=== PATIENT | female | born 1965 | race American Indian/Alaskan Native ===

== ENCOUNTER 2021-05-14 08:25 | Observation (INO) | payer OTHER ==
[2021-05-14] MEDS ORDERED: ASPIRIN 325 MG TAB PO ONE (08:51)
--- NOTE | 2021-05-14 09:25 | XRay Report ---
CHEST 2 VIEWS INDICATION / CLINICAL INFORMATION: Chest pain. COMPARISON: None available. FINDINGS: SUPPORT DEVICES: None. HEART / MEDIASTINUM: No significant abnormality. LUNGS / PLEURA: No significant pulmonary or pleural abnormality. No pneumothorax. ADDITIONAL FINDINGS: No significant additional findings. IMPRESSION: 1. No acute findings. Signer Name: David García MD Signed: 05/14/2021 9:21 AM Workstation Name: [id number]
[2021-05-14 10:38] LABS: Basophils % (Auto) 0.5 % (0.0-1.8); Eosinophils # (Auto) 0.2 K/mm3 (0.0-0.4); Hematocrit 39.2 % (30.3-42.9); Hemoglobin 12.9 gm/dl (10.1-14.3); Lymphocytes % (Auto) 29.5 % (13.4-35.0); Mean Corpuscular HGB Conc 33 % (30-34); Mean Corpuscular Volume 84 fl (79-97); Monocytes # (Auto) 0.5 K/mm3 (0.0-0.8); Monocytes % (Auto) 6.7 % (0.0-7.3); Platelet Count 197 K/mm3 (140-440); Red Blood Count 4.65 M/mm3 (3.65-5.03); Red Cell Distribution Width 14.3 % (13.2-15.2)
[2021-05-14] MEDS ORDERED: NITROGLYCERIN 2% OINT 1 GM TP ONE (10:56)
--- NOTE | 2021-05-14 11:00 | Emergency Department Report ---
HPI - General Chief Complaint: Chest Pain Time Seen by Provider: 05/14/21 10:17 - HPI HPI: Room 36 The patient is a 55-year-old female present with chief complaint of chest pain. The patient states for the past 4 days she has had intermittent substernal chest pain described as feeling as though the elephant is sitting on her chest associated with shortness of breath, diaphoresis and nausea without vomiting. The patient has a history of factor V Leiden and states the only "blood thinner" she takes for this visit aspirin. Patient denies pleurisy but admits to occasional cough productive mucus with pink sputum. The patient states this morning when she awakened she had numbness in her right upper extremity prompting her to come to the emergency department. 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 Factor V Leiden - Surgical History Additional Surgical History: hysterectomy, Right knee surgery. Right carpal tunnel repair - Family History Family history: no significant - Social History Smoking Status: Never Smoker Substance Use Type: None (Denies illicit drug use), Alcohol (Occasional) - Medications Home Medications: Home Medications Medication Instructions Recorded Confirmed Last Taken Type Aspirin [Aspirin BABY CHEW TAB] 81 mg PO QDAY 01/12/16 01/12/16 1 Day Ago History ~01/11/16 HYDROcodone/APAP 5-325 [[place] 1 - 2 each PO Q6HR PRN #12 tablet 01/12/16 Unknown Rx 5/325] Lactulose [Cephulac] 20 gm PO QDAY PRN #90 ml 01/12/16 Unknown Rx Promethazine [Phenergan TAB] 25 mg PO Q6HR PRN #20 tab 01/12/16 Unknown Rx Promethazine [Phenergan] 25 mg MT Q6HR PRN #10 supp.rect 01/12/16 Unknown Rx raNITIdine HCl [Zantac 150 MG TAB] 150 mg PO BID 01/12/16 01/12/16 1 Day Ago History ~01/11/16 metroNIDAZOLE [Metronidazole] 500 mg PO TID #21 tablet 09/14/18 Unknown Rx ED Review of Systems ROS: Stated complaint: CHEST PAIN Other details as noted in HPI Constitutional: diaphoresis Eyes: denies: eye pain ENT: denies: throat pain Respiratory: shortness of breath Cardiovascular: chest pain Endocrine: no symptoms reported Gastrointestinal: nausea. denies: vomiting Genitourinary: denies: dysuria Musculoskeletal: back pain Neurological: headache, paresthesias Physical Exam - Physical Exam Vital Signs: Vital Signs 05/14/21 08:48 Temperature 98.2 F Pulse Rate 75 Respiratory 18 Rate Blood Pressure 150/98 [Right] O2 Sat by Pulse 99 Oximetry Physical Exam: GENERAL: The patient is well-developed well-nourished female lying on stretcher not appearing to be in acute distress. [] HEENT: Normocephalic. Atraumatic. Extraocular motions are intact. Patient has moist mucous membranes. NECK: Supple. Trachea midline CHEST/LUNGS: Clear to auscultation. There is no respiratory distress noted. HEART/CARDIOVASCULAR: Regular. There is no tachycardia. There is no gallop rub or murmur. ABDOMEN: Abdomen is soft, nontender. Patient has normal bowel sounds. There is no abdominal distention. SKIN: There is no rash. There is no edema. There is no diaphoresis. NEURO: The patient is awake, alert, and oriented. The patient is cooperative. The patient has no focal neurologic deficits. The patient has normal speech MUSCULOSKELETAL: There is no evidence of acute injury. ED Course Vital Signs 05/14/21 08:48 Temperature 98.2 F Pulse Rate 75 Respiratory 18 Rate Blood Pressure 150/98 [Right] O2 Sat by Pulse 99 Oximetry ED Medical Decision Making - Lab Data Result diagrams: 05/14/21 10:17 05/14/21 10:17 Laboratory Tests 05/14/21 05/14/21 10:17 10:17 WBC 6.9 RBC 4.65 Hgb 12.9 Hct 39.2 MCV 84 MCH 28 MCHC 33 RDW 14.3 Plt Count 197 Lymph % (Auto) 29.5 Bacon % (Auto) 6.7 Eos % (Auto) 3.0 Baso % (Auto) 0.5 Lymph # (Auto) 2.0 Bacon # (Auto) 0.5 Eos # (Auto) 0.2 Baso # (Auto) 0.0 Seg Neutrophils % 60.3 Seg Neutrophils # 4.2 Sodium 142 Potassium 4.2 Chloride 106.1 Carbon Dioxide 27 Anion Gap 13 BUN 11 Creatinine 0.6 Estimated GFR > 60 BUN/Creatinine Ratio 18 Glucose 91 Calcium 9.2 Total Bilirubin 0.40 AST 12 ALT 10 Alkaline Phosphatase 69 Troponin T < 0.010 Total Protein 7.0 Albumin 4.1 Albumin/Globulin Ratio 1.4 - EKG Data -: EKG Interpreted by Me EKG shows normal: sinus rhythm Rate: normal - EKG Data When compared to previous EKG there are: previous EKG unavailable Interpretation: nonspecific ST-T wave selina (T wave inversion in lead III) - Radiology Data Radiology results: report reviewed (Chest x-ray, CT chest), image reviewed (Chest x-ray, CT chest) interpreted by me: Chest x-ray-no focal infiltrates, no pneumothorax. No foreign body seen [address] [address] XRay Report Signed Patient: GEOVANY GONZALES R#: [id number] : 1965 Acct:[id number] Age/Sex: 55 / F ADM Date: 05/14/21 Loc: ED Attending Dr: Ordering Physician: ED MD TREVER Date of Service: 05/14/21 Procedure(s): XR chest routine 2V Accession Number(s): [id number] cc: ED MD TREVER Fluoro Time In Minutes: CHEST 2 VIEWS INDICATION / CLINICAL INFORMATION: Chest pain. COMPARISON: None available. FINDINGS: SUPPORT DEVICES: None. HEART / MEDIASTINUM: No significant abnormality. LUNGS / PLEURA: No significant pulmonary or pleural abnormality. No pneumothorax. ADDITIONAL FINDINGS: No significant additional findings. IMPRESSION: 1. No acute findings. Signer Name: David García MD Signed: 05/14/2021 9:21 AM Workstation Name: [id number] Transcribed By: LEANA Dictated By: David García MD Electronically Authenticated By: David García MD Signed Date/Time: 05/14/21920 DD/ 9 TD/TT: Print [address] [address] Cat Scan Report Signed Patient: GEOVANY GONZALES R#: [id number] : 1965 Acct:[id number] Age/Sex: 55 / F ADM Date: 05/14/21 Loc: ED Attending Dr: Ordering Physician: JOSE FU MD Date of Service: 05/14/21 Procedure(s): CT angio chest Accession Number(s): [id number] cc: JOSE FU MD CTA CHEST WITH CONTRAST INDICATION : 100ml of Omnipaque 350 given, SOB, chest pain, and right side weakness. TECHNIQUE: Axial imaging performed through the chest, with contrast bolus timing set to maximize opacification of the pulmonary arteries. Sagittal and coronal reformatted images. 3-plane MIP reformatted images were obtained. All CT scans at this location are performed using CT dose reduction for ALARA by means of automated exposure control. 100 mL of intraven ous contrast administered. COMPARISON: None FINDINGS: Bolus: Contrast bolus timing is adequate. PTE: No filling defect is present to suggest PTE. Mediastinum: Heart and great vessels appear normal. No pathologic mediastinal adenopathy. Lungs: Lungs are clear. Bones: Degenerative changes in the spine with nothing acute. Upper abdomen: Limited imaging of the upper abdomen shows nothing acute. IMPRESSION: Negative for PTE. Clear lungs. Signer Name: Dav York Jr, MD Signed: 05/14/2021 12:01 PM Workstation Name: [id number] Transcribed By: TTR Dictated By: DAV YORK JR, MD Electronically Authenticated By: DAV YORK JR, MD Signed Date/Time: 05/14/21 1201 DD/ 1200 TD/TT: Print Cancel - Differential Diagnosis ACS, pericarditis, PE, GERD Critical care attestation.: If time is entered above; I have spent that time in minutes in the direct care of this critically ill patient, excluding procedure time. ED Disposition Clinical Impression: Chest pain Disposition: OP ADMIT IP TO THIS HOSP Is pt being admited?: Yes Does the pt Need Aspirin: Yes Condition: Fair Instructions: Nonspecific Chest Pain, Adult Referrals: PRIMARY CARE,MD [Primary Care Provider] - 3-5 Days Time of Disposition: 12:08 (Hospitalist paged (Dr. Cohen)) Heart Score - HEART Score History: Highly suspicious EKG: Non-specific Age: 45-65 Risk factors: 1-2 risk factors Troponin: < normal limit HEART Score: 5 - EKG Read Time Time EKG Completed: 09:04 EKG Read Time: 09:06
[2021-05-14 11:08] LABS: Alanine Aminotransferase 10 units/L (7-56); Albumin 4.1 g/dL (3.9-5); Blood Urea Nitrogen 11 mg/dL (7-17); Calcium 9.2 mg/dL (8.4-10.2); Hemolysis Index 2
[2021-05-14 11:10] LABS: BUN/Creatinine Ratio 18
--- NOTE | 2021-05-14 12:06 | Cat Scan Report ---
CTA CHEST WITH CONTRAST INDICATION : 100ml of Omnipaque 350 given, SOB, chest pain, and right side weakness. TECHNIQUE: Axial imaging performed through the chest, with contrast bolus timing set to maximize opa cification of the pulmonary arteries. Sagittal and coronal reformatted images. 3-plane MIP reformatte d images were obtained. All CT scans at this location are performed using CT dose reduction for ALAR A by means of automated exposure control. 100 mL of intravenous contrast administered. COMPARISON: None FINDINGS: Bolus: Contrast bolus timing is adequate. PTE: No filling defect is present to suggest PTE. Mediastinum: Heart and great vessels appear normal. No pathologic mediastinal adenopathy. Lungs: Lungs are clear. Bones: Degenerative changes in the spine with nothing acute. Upper abdomen: Limited imaging of the upper abdomen shows nothing acute. IMPRESSION: Negative for PTE. Clear lungs. Signer Name: Dav York Jr, MD Signed: 05/14/2021 12:01 PM Workstation Name: [id number]
--- NOTE | 2021-05-14 13:06 | History and Physical Report ---
History of Present Illness Chief complaint: My chest hurts History of present illness: 55 YO Female with Obesity, HTN, CVA, Factor V Leiden Mutation on Antiplatelet therapy with Asprin, GERD presents to ED for evaluation. Patient reports "my chest hurts". Patient states that she has experienced pain in her chest over the past 4 days with persistent symptoms over the same timeframe. Patient states that pain is 4/10, intermittent, substernal, crushing in nature, nonradiating, associated with shortness of breath, associated with diaphoresis, and "feels as though an elephant is sitting on her chest". Patient transported to [facility] via private vehicle for further care and evaluation of the aforementioned symptoms. The patient was seen and evaluated in the emergency department. All lab and imaging studies reviewed. Patient found to have symptoms consistent with angina, as well as atypical chest pain possibly secondary to gastroesophageal reflux disease. Patient placed in observation status and admitted to telemetry floor and initiated on chest pain protocol. Patient treated with concomitant PPI therapy. Patient denies fever, chills, palpitation, productive cough, skin rash, recent ill contact, or known exposure to COVID-19. No prior admission for review. All medication listed at time of admission has been reconciled. Past History Past Medical History: GERD, hypertension, other (See HPI) Past Surgical History: hysterectomy, Other (Right knee surgery, right carpal tunnel release.) Social history: single. denies: smoking, alcohol abuse, prescription drug abuse Family history: diabetes, hypertension Medications and Allergies Allergies Allergy/AdvReac Type Severity Reaction Status Date / Time No Known Allergies Allergy Unverified 01/12/16 14:43 Home Medications Medication Instructions Recorded Confirmed Last Taken Type Aspirin [Aspirin BABY CHEW TAB] 81 mg PO QDAY 01/12/16 01/12/16 1 Day Ago History ~01/11/16 HYDROcodone/APAP 5-325 [[place] 1 - 2 each PO Q6HR PRN #12 tablet 01/12/16 Unknown Rx 5/325] Lactulose [Cephulac] 20 gm PO QDAY PRN #90 ml 01/12/16 Unknown Rx Promethazine [Phenergan TAB] 25 mg PO Q6HR PRN #20 tab 01/12/16 Unknown Rx Promethazine [Phenergan] 25 mg CO Q6HR PRN #10 supp.rect 01/12/16 Unknown Rx raNITIdine HCl [Zantac 150 MG TAB] 150 mg PO BID 01/12/16 01/12/16 1 Day Ago History ~01/11/16 metroNIDAZOLE [Metronidazole] 500 mg PO TID #21 tablet 09/14/18 Unknown Rx Review of Systems Constitutional: no weight loss, no weight gain, no fever, no chills, no weakness, no malaise Ears, nose, mouth and throat: no ear pain, no ear discharge, no tinnitis, no decreased hearing, no nasal congestion Breasts: no change in shape, no swelling, no mass Cardiovascular: chest pain, no orthopnea, no palpitations, no rapid/irregular heart beat, no edema, no shortness of breath, no dyspnea on exertion, no claudication Respiratory: no cough, no excessive sputum, no shortness of breath Gastrointestinal: no abdominal pain, no nausea, no vomiting, no diarrhea, no constipation Genitourinary Female: no pelvic pain, no flank pain, no dysuria, no urinary frequency, no urgency Rectal: no pain, no incontinence, no bleeding Musculoskeletal: no neck stiffness, no neck pain, no shooting arm pain, no arm numbness/tingling, no shooting leg pain Integumentary: no rash, no pruritis, no redness, no sores, no wounds Neurological: no head injury, no transient paralysis, no paralysis, no weakness, no parathesias, no seizures, no syncope Psychiatric: no anxiety, no memory loss, no sleep disturbances, no hypersomnia, no change in appetite, no change in libido Endocrine: no cold intolerance, no heat intolerance, no excessive thirst, no polydipsia, no polyuria, no nocturia Hematologic/Lymphatic: no easy bruising, no easy bleeding, no lymphedema Allergic/Immunologic: no urticaria, no persistent infections Exam - Constitutional Vitals: Temp Pulse Resp BP Pulse Ox 98.2 F 62 18 143/81 99 05/14/21 08:48 05/14/21 12:17 05/14/21 08:48 05/14/21 12:17 05/14/21 08:48 General appearance: Present: mild distress - EENT Eyes: Present: PERRL ENT: hearing intact, clear oral mucosa - Neck Neck: Present: supple, normal ROM - Respiratory Respiratory effort: normal Respiratory: bilateral: CTA - Cardiovascular Heart Sounds: Present: S1 & S2. Absent: rub, click - Extremities Extremities: pulses symmetrical, No edema Peripheral Pulses: within normal limits - Abdominal General gastrointestinal: Present: soft, non-tender, non-distended, normal bowel sounds Female genitourinary: Present: normal - Integumentary Integumentary: Present: clear, warm, dry - Musculoskeletal Musculoskeletal: gait normal, strength equal bilaterally - Psychiatric Psychiatric: appropriate mood/affect, intact judgment & insight - Neurologic Neurologic: CNII-XII intact, moves all extremities HEART Score - HEART Score EKG: Non-specific Age: 45-65 Risk factors: 1-2 risk factors Troponin: Troponin T < 0.010 ng/mL (0.00-0.029) 05/14/21 11:56 Troponin: < normal limit Results - Labs CBC & Chem 7: 05/14/21 10:17 05/14/21 10:17 Assessment and Plan - Patient Problems (1) Chest pain Current Visit: Yes Status: Acute Qualifiers: Chest pain type: unspecified Qualified Code(s): R07.9 - Chest pain, unspecified Plan to address problem: Chest pain protocol,: Serial cardiac enzymes, EKG, remote telemetry monitoring. EKG reviewed normal sinus rhythm, no evidence of ischemia. (2) GERD (gastroesophageal reflux disease) Current Visit: Yes Status: Acute Plan to address problem: PPI therapy, Carafate, outpatient GI follow-up for endoscopy. (3) Obesity Current Visit: Yes Status: Acute Qualifiers: Body mass index: BMI 36.0-36.9 Plan to address problem: Balanced diet, increase physical activity discharge, outpatient pulmonary follow-up for sleep study. (4) Factor V Leiden mutation Current Visit: Yes Status: Acute Plan to address problem: Outpatient hematology follow-up, continue antiplatelet therapy with aspirin (5) DVT prophylaxis Current Visit: Yes Status: Acute Plan to address problem: SCD to bilateral lower extremities while in bed, patient is ambulatory.
[2021-05-14] MEDS ORDERED: MORPHINE 2 MG/1 ML INJ IV PRN (13:07)
[2021-05-14] MEDS ORDERED: ALBUTEROL 2.5 MG/3 ML NEBU IH PRN (13:30)
[2021-05-14] MEDS ORDERED: PROMETHAZINE 25 MG TAB PO PRN (14:00)
[2021-05-14] MEDS ORDERED: ONDANSETRON 4 MG/2 ML INJ IV PRN (14:00)
[2021-05-14] MEDS ORDERED: oxyCODONE /ACETAMINOPHEN 5-325MG TAB PO PRN (14:00)
[2021-05-14] MEDS ORDERED: PROMETHAZINE 25 MG RECT SUPP PR PRN (14:00)
[2021-05-14] MEDS ORDERED: LACTULOSE 20 GM/30 ML ORAL LIQD PO PRN (14:00)
[2021-05-14] MEDS ORDERED: ACETAMINOPHEN 325 MG TAB PO PRN (14:00)
[2021-05-14] MEDS: SUCRALFATE 1 GM/10 ML ORAL LIQD PO SCH ×2 (16:47→21:44)
--- NOTE | 2021-05-14 18:07 | Electrocardiograph Report ---
[facility] Test Date: 2021-05-14 Test Time: 09:04:37 Pat Name: GEOVANY GONZALES Department: Room: A487 Gender: F Tractor Expert: PARISA : 1965 Requested By: ED DOC Order Number: [id number] Reading MD: William Feng Measurements Intervals [place] Rate: 64 P: 62 NV: 194 QRS: -7 QRSD: 111 T: 27 QT: 417 QTc: 431 Interpretive Statements Sinus rhythm No previous ECG available for comparison Electronically Signed On 05-14-2021 18:06:47 EDT by William Feng
[2021-05-14] MEDS: FAMOTIDINE 20 MG TAB PO SCH (21:44)
[2021-05-15 06:48] LABS: Blood Urea Nitrogen 13 mg/dL (7-17); Calcium 8.5 mg/dL (8.4-10.2); Hemolysis Index 0
[2021-05-15 06:52] LABS: BUN/Creatinine Ratio 19
--- NOTE | 2021-05-15 08:27 | Discharge Summary ---
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 The patient was seen and evaluated in the emergency department. All lab and imaging studies reviewed. Patient found to have symptoms consistent with angina, as well as atypical chest pain possibly secondary to gastroesophageal reflux disease. Patient placed in observation status and admitted to telemetry floor and initiated on chest pain protocol. Patient treated with concomitant PPI therapy. Troponin and EKG were found to be negative. Patient will undergo Lexiscan stress test this morning and if found to be negative will likely discharge home with PPI therapy and diagnosis of chest pain related to GERD. Dedicated discharge time 35 minutes. Disposition: DC-01 TO HOME OR SELFCARE Final Discharge Diagnosis (Prints w/discharge instructions): Obesity, HTN, CVA, Factor V Leiden Mutation on Antiplatelet therapy with Asprin, GERD Core Measure Documentation - Palliative Care Palliative Care/ Comfort Measures: Not Applicable - Core Measures Any of the following diagnoses?: none Exam - Constitutional Vitals: Temp Pulse Resp BP Pulse Ox 98.1 F 80 18 113/70 92 05/14/21 23:36 05/14/21 23:36 05/14/21 23:36 05/14/21 23:36 05/14/21 23:36 General appearance: Present: no acute distress, well-nourished - EENT Eyes: Present: PERRL ENT: hearing intact, clear oral mucosa - Neck Neck: Present: supple, normal ROM - Respiratory Respiratory effort: normal Respiratory: bilateral: CTA - Cardiovascular Heart Sounds: Present: S1 & S2. Absent: rub, click - Extremities Extremities: pulses symmetrical, No edema Peripheral Pulses: within normal limits - Abdominal General gastrointestinal: Present: soft, non-tender, non-distended, normal bowel sounds Female genitourinary: Present: normal - Integumentary Integumentary: Present: clear, warm, dry - Musculoskeletal Musculoskeletal: gait normal, strength equal bilaterally - Psychiatric Psychiatric: appropriate mood/affect, intact judgment & insight - Neurologic Neurologic: CNII-XII intact, moves all extremities Plan Activity: advance as tolerated Weight Bearing Status: Weight Bear as Tolerated Diet: low fat, low cholesterol, low salt Follow up with: PRIMARY CARE, [Primary Care Provider] - 3-5 Days PARMJIT GREY MD [Staff Physician] - 7 Days Prescriptions: HYDROcodone/APAP 5-325 [[place] 5-325 mg TAB] 1 - 2 each PO Q6HR PRN #12 tablet PRN Reason: Pain Pantoprazole [Protonix] 40 mg PO QDAY #30 tablet
[2021-05-15] MEDS: SUCRALFATE 1 GM/10 ML ORAL LIQD PO SCH ×2 (08:53→12:40)
[2021-05-15] MEDS ORDERED: ASPIRIN 81 MG TAB CHEW PO SCH (10:00)
[2021-05-15] MEDS ORDERED: REGADENOSON 0.4 MG/5 ML INJ IV ONE ×2 (10:23→10:27)
[2021-05-15 12:40] VITALS: BP 126/83
[2021-05-15] MEDS: FAMOTIDINE 20 MG TAB PO SCH (12:40)
--- NOTE | 2021-05-15 15:28 | Consultation ---
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 She is previously unknown to our practice. Patient presents to [facility] with complaint of chest pain x4 days. Pain is described as 10 out of 10, sharp, episodic left-sided and radiating down the right arm last occurring on Wednesday. At time of interview patient is currently chest pain-free and denies any weakness, dizziness, shortness of breath, abdominal pain, N/V/D, recent illness or known exposure. Past History Past Medical History: GERD, hypertension, other (See HPI) Past Surgical History: hysterectomy, Other (Right knee surgery, right carpal tunnel release.) Social history: single. denies: smoking, alcohol abuse, prescription drug abuse Family history: diabetes, hypertension Medications and Allergies Allergies Allergy/AdvReac Type Severity Reaction Status Date / Time No Known Allergies Allergy Unverified 01/12/16 14:43 Home Medications Medication Instructions Recorded Confirmed Last Taken Type Aspirin [Aspirin BABY CHEW TAB] 81 mg PO QDAY 01/12/16 05/14/21 1 Day Ago History ~01/11/16 Lactulose [Cephulac] 20 gm PO QDAY PRN #90 ml 01/12/16 05/14/21 Unknown Rx Promethazine [Phenergan SUPPOS] 25 mg AL Q6HR PRN #10 supp.rect 01/12/16 05/14/21 Unknown Rx Promethazine [Phenergan] 25 mg PO Q6HR PRN #20 tab 01/12/16 05/14/21 Unknown Rx raNITIdine HCl [Zantac] 150 mg PO BID 01/12/16 05/14/21 1 Day Ago History ~01/11/16 metroNIDAZOLE [Metronidazole] 500 mg PO TID #21 tablet 09/14/18 05/14/21 Unknown Rx HYDROcodone/APAP 5-325 [[place] 1 - 2 each PO Q6HR PRN #12 tablet 05/15/21 Unknown Rx 5-325 mg TAB] Pantoprazole [Protonix] 40 mg PO QDAY #30 tablet 05/15/21 Unknown Rx Active Meds: Active Medications Acetaminophen (Acetaminophen 325 Mg Tab) 650 mg PO Q4H PRN PRN Reason: Pain MILD(1-3)/Fever >100.5/REED Albuterol (Albuterol 2.5 Mg/3 Ml Nebu) 2.5 mg IH Q4HRT PRN PRN Reason: Shortness Of Breath Aspirin (Aspirin 81 Mg Tab Chew) 81 mg PO QDAY [facility] Famotidine (Famotidine 20 Mg Tab) 20 mg PO BID [facility] Last Admin: 05/14/21 21:44 Dose: 20 mg Documented by: Lactulose (Lactulose 20 Gm/30 Ml Oral Liqd) 20 gm PO QDAY PRN PRN Reason: Constipation Morphine Sulfate (Morphine 2 Mg/1 Ml Inj) 1 mg IV Q8H PRN PRN Reason: Pain , Severe (7-10) Ondansetron HCl (Ondansetron 4 Mg/2 Ml Inj) 4 mg IV Q8H PRN PRN Reason: Nausea And Vomiting Last Admin: 05/14/21 19:50 Dose: 4 mg Documented by: Oxycodone/Acetaminophen (Oxycodone /Acetaminophen 5-325mg Tab) 1 tab PO Q6H PRN PRN Reason: Pain, Moderate (4-6) Last Admin: 05/14/21 19:49 Dose: 1 tab Documented by: Promethazine HCl (Promethazine 25 Mg Tab) 25 mg PO Q6HR PRN PRN Reason: Nausea Promethazine HCl (Promethazine 25 Mg Rect Supp) 25 mg AL Q6HR PRN PRN Reason: Vomiting Sodium Chloride (Sodium Chloride 0.9% 10 Ml Flush Syringe) 10 ml IV BID [facility] Last Admin: 05/14/21 21:45 Dose: 10 ml Documented by: Sodium Chloride (Sodium Chloride 0.9% 10 Ml Flush Syringe) 10 ml IV PRN PRN PRN Reason: LINE FLUSH Sucralfate (Sucralfate 1 Gm/10 Ml Oral Liqd) 1 gm PO [facility] Last Admin: 05/15/21 08:53 Dose: Not Given Documented by: Review of Systems Constitutional: no weight loss, no weight gain, no fever, no chills, no sweats, no night sweats Ears, nose, mouth and throat: no ear pain, no ear discharge, no decreased hearing, no nose pain, no nasal congestion, no nasal discharge Cardiovascular: chest pain, shortness of breath, no orthopnea, no palpitations, no rapid/irregular heart beat, no edema, no syncope, no lightheadedness, no dyspnea on exertion Respiratory: no cough, no cough with sputum, no hemoptysis, no shortness of breath, no dyspnea on exertion Gastrointestinal: no abdominal pain, no nausea, no vomiting, no diarrhea Genitourinary Female: no pelvic pain, no flank pain Musculoskeletal: no neck stiffness, no neck pain, no shooting arm pain, no arm numbness/tingling, no low back pain, no shooting leg pain Integumentary: no rash, no pruritis, no redness, no sores, no wounds Neurological: no head injury, no paralysis, no weakness, no parathesias, no numbness, no tingling, no seizures, no syncope Psychiatric: no anxiety Endocrine: no cold intolerance, no heat intolerance Hematologic/Lymphatic: no easy bruising, no easy bleeding Allergic/Immunologic: no urticaria Physical Examination Last Vital Signs Temp 98.7 F 05/15/21 08:00 Pulse 66 05/15/21 08:00 Resp 18 05/15/21 08:00 BP 126/83 05/15/21 11:35 Pulse Ox 97 05/15/21 10:00 General appearance: no acute distress HEENT: Positive: PERRL, Normocephaly, Mucus Membranes Moist Neck: Positive: neck supple, trachea midline Cardiac: Positive: Reg Rate and Rhythm, S1/S2 Lungs: Positive: Normal Exam, Normal Breath Sounds Neuro: Positive: Grossly Intact Abdomen: Positive: Unremarkable, Soft Skin: Negative: Rash, Wound Musculoskeletal: No Pain Extremities: Present: upper extr. pulses, lower extr. pulses. Absent: edema Results 05/14/21 10:17 05/15/21 05:48 Comprehensive Metabolic Panel 05/15/21 Range/Units 05:48 Sodium 140 (137-145) mmol/L Potassium 4.2 (3.6-5.0) mmol/L Chloride 108.2 H (98-107) mmol/L Carbon Dioxide 23 (22-30) mmol/L BUN 13 (7-17) mg/dL Creatinine 0.7 (0.6-1.2) mg/dL Glucose 78 (65-100) mg/dL Calcium 8.5 (8.4-10.2) mg/dL - Imaging and Cardiology Echo: pending EKG: report reviewed, image reviewed EKG interpretations - Telemetry EKG Rhythm: Sinus Rhythm - EKG Sinus rhythms and dysrhythmias: sinus rhythm Assessment and Plan Chest pain * Patient is currently chest pain-free with no cardiac symptoms. Twelve-lead ECG reviewed which shows sinus rhythm with no acute ischemic changes. Troponins are negative x3. IL is ruled out * Echocardiogram is pending read, preliminary shows normal EF * Lexiscan MPI stress test (05/15/2021): Negative for reversible ischemia Factor V Leiden deficiency * Continue ASA 81 mg home therapy Patient is currently stable cardiac status. Chest pain is currently resolved and apparently of noncardiac etiology. Patient may discharge from cardiology standpoint. Will follow on as-needed basis. Patient may follow-up with Dr Scales, [facility] specialists within 1 to 2 weeks of discharge. #[id number] This patient was seen in conjunction with Dr Scales who agrees with this assessment and plan of care - Patient Problems (1) Chest pain Current Visit: Yes Status: Acute Qualifiers: Chest pain type: unspecified Qualified Code(s): R07.9 - Chest pain, unspecified (2) DVT prophylaxis Current Visit: Yes Status: Acute (3) Factor V Leiden mutation Current Visit: Yes Status: Chronic (4) GERD (gastroesophageal reflux disease) Current Visit: Yes Status: Chronic
--- NOTE | 2021-05-16 10:33 | Electrocardiograph Report ---
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
--- NOTE | 2021-05-16 17:46 | Nuclear Medicine Report ---
APPROVED REPORT Exam: Nuclear Stress Test Indication: Chest pain BMI: 0 Stress Test Details HR Resting HR: 63 bpm Max HR Achieved: 157 bpm Max Heart Rate (APMHR): 166 bpm Target HR (85% APMHR): 141 bpm % of APMHR: 94 Recovery HR: 99 bpm HR response to stress: Normal HR response to stress BP Resting BP: 131/73 mmHg Max BP: 155/79 mmHg Recovery BP: 119/77 mmHg BP response to stress: Normal blood pressure response to stress. ECG Resting ECG: Sinus Rhythm Stress ECG: Sinus Tachycardia ST Change: None Arrhythmia: None Recovery ECG: Sinus Rhythm Recovery ST Change: None Recovery Arrhythmia: None Clinical Reason for Termination: Fatigue Stress Symptoms: None Exercise duration: 7 min 30 sec Exercise capacity: 8.8 METs Overall Exercise Capacity for Age: Good Stress ECG Conclusion Baseline EKG showed S.R,exercised for 7'30",no chest pain,no EKG changes,no arrhythmia noted, NM EXAM: Myocardial Perfusion REST/STRESS Imaging Protocol: Rest Tc-99m/Stress Tc-99m 1 day Resting Data Rest SPECT myocardial perfusion imaging was performed in supine position 45 minutes following the intravenous injection of 10 mCi of Tc-99m Myoview. Time of rest injection: 0845 Exercise Stress At peak stress, the patient was injected intravenously with 28mCi of Tc-99m Myoview. Time of stress injection: 1130 Gated Stress SPECT was performed 30 minutes after stress injection. The images were gated to evaluate regional wall motion and calculate left ventricular ejection fraction. Study Quality Study: excellent Lung Uptake: Normal Study Data TID = 0.97. Perfusion Wall Motion The rest and stress images show normal left ventricular wall motion.LVEF ,calculated post vasodilation was noted to be 71%,normal EDV and ESV noted. Nuclear Conclusion ECG Findings: negative for ischemia Clinical Findings: negative for ischemia Nuclear Findings: negative for ischemia Exercise Capacity: normal Left Ventricular Function: normal Risk Study: low Normal study. No scintigraphic evidence for myocardial ischemia or scar. Conclusion Baseline EKG showed S.R,exercised for 7'30",no chest pain,no EKG changes,no arrhythmia noted,
== END 2021-05-15 17:29 | disposition home or self-care (01) ==
LOC: ED 08:25 → 4A 13:13
PROVIDERS: ADMIT Internal Medicine; ATTEND Hospitalist
DX: I20.8 Other forms of angina pectoris (principal); R07.89 Other chest pain; K21.9 Gastro-esophageal reflux disease without esophagitis; E66.9 Obesity, unspecified; D68.51 Activated protein C resistance; I10 Essential (primary) hypertension; Z86.73 Personal history of transient ischemic attack (TIA), and cerebral infarction without residual deficits; Z79.82 Long term (current) use of aspirin; Z79.02 Long term (current) use of antithrombotics/antiplatelets; Z79.899 Other long term (current) drug therapy; Z90.710 Acquired absence of both cervix and uterus; Z98.890 Other specified postprocedural states; Z68.37 Body mass index [BMI] 37.0-37.9, adult
CPT/HCPCS: 36415; 71046; 71275; 78452; 80048; 80053; 84484; 85025; 93005; 93017; 96374; 99285; A9502; G0378; J2405; Q9967; J2785